=== PATIENT | male | born 1965 | race African-American/Black ===

== ENCOUNTER 2017-05-03 12:36 | Emergency (ER) | payer OTHER ==
[2017-05-03 14:33] LABS: ABSOLUTE EOSINOPHILS # (AUTO) 0.1 10^3/uL (0.0-0.6); ABSOLUTE LYMPHOCYTES (AUTO) 1.7 10^3/uL (0.5-4.7); ABSOLUTE MONOCYTES (AUTO) 0.5 10^3/uL (0.1-1.4); ABSOLUTE NEUT (AUTO) 2.4 10^3/uL (1.7-8.2); BASOPHILS % (AUTO) 0.5 % (0-2); EOSINOPHILS % (AUTO) 1.4 % (0-6); HEMATOCRIT 45.9 % (37.9-51.0); HGB HCT DIFFERENCE -0.9; LYMPHOCYTES % (AUTO) 36.7 % (13-45); MEAN CORPUSCULAR HEMOGLOBIN 30.4 pg (27.0-33.4); MEAN CORPUSCULAR HGB CONC 32.6 g/dL (32.0-36.0); MEAN CORPUSCULAR VOLUME 93 fl (80-97); MONOCYTES % (AUTO) 10.6 % (3-13); RED BLOOD COUNT 4.93 10^6/uL (4.35-5.55); RED CELL DISTRIBUTION WIDTH 13.6 % (11.5-14.0); SEGMENTED NEUTROPHILS % (AUTO) 50.8 % (42-78); WHITE BLOOD COUNT 4.7 10^3/uL (4.0-10.5)
[2017-05-03 14:56] LABS: ALANINE AMINOTRANSFERASE 46 U/L (21-72); ALBUMIN 4.2 g/dL (3.5-5.0); ALKALINE PHOSPHATASE 69 U/L (38-126); ANION GAP 7 (5-19); ASPARTATE AMINO TRANSFERASE 36 U/L (17-59); BILIRUBIN,DIRECT 0.3 mg/dL (0.0-0.4); BILIRUBIN,TOTAL 0.6 mg/dL (0.2-1.3); BLOOD UREA NITROGEN 12 mg/dL (7-20); CALCIUM 9.4 mg/dL (8.4-10.2); CARBON DIOXIDE 31 mmol/L (22-30); CHLORIDE 101 mmol/L (98-107); CREATININE RESULT 1.07 mg/dL (0.52-1.25); GLUCOSE 86 mg/dL (75-110); POTASSIUM 4.6 mmol/L (3.6-5.0); SODIUM 138.8 mmol/L (137-145); TOTAL PROTEIN 7.1 g/dL (6.3-8.2)
--- NOTE | 2017-05-03 15:04 | ER Document Report ---
ED Cardiac - General Mode of Arrival: Ambulatory Information source: Patient TRAVEL OUTSIDE OF THE [place] IN LAST 30 DAYS: No - HPI Patient complains to provider of: Chest pain <ANDRE MELENDEZ - Last Filed: 05/03/17 16:28> <LELE RODRIGUEZ - Last Filed: 05/03/17 21:45> - General Chief Complaint: Chest Pain Stated Complaint: CHEST PAIN Time Seen by Provider: 05/03/17 13:56 Notes: Patient is a 51-year-old male who presents to the emergency department today with complaints of chest pain and difficulty taking deep breaths. 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 Patient had a stress test 1 year ago which was unremarkable. Patient has a history of MS. Patient states he has felt slightly short of breath but denies any nausea, cough, or fevers. (ANDRE MELENDEZ) - Related Data Allergies/Adverse Reactions: No Known Allergies Allergy (Verified 05/03/17 12:47) Past Medical History - General Information source: Patient - Social History Smoking Status: Never Smoker Cigarette use (# per day): No Frequency of alcohol use: None Drug Abuse: None Lives with: Family Family History: Reviewed & Not Pertinent - Past Medical History Cardiac Medical History: Reports: Hx Hypertension Musculoskeltal Medical History: Reports Hx Multiple Sclerosis Past Surgical History: Reports: Hx Cardiac Catheterization - no stents placed - Immunizations Hx Diphtheria, Pertussis, Tetanus Vaccination: Yes Hx Pneumococcal Vaccination: 06/05/12 <ANDRE MELENDEZ - Last Filed: 05/03/17 16:28> Review of Systems - Review of Systems Constitutional: denies: Fever EENT: No symptoms reported Cardiovascular: See HPI, Chest pain Respiratory: See HPI, Short of breath, Other - difficulty taking deep breaths. denies: Cough Gastrointestinal: denies: Nausea Genitourinary: No symptoms reported Male Genitourinary: No symptoms reported Musculoskeletal: No symptoms reported Skin: No symptoms reported Hematologic/Lymphatic: No symptoms reported Neurological/Psychological: No symptoms reported -: Yes All other systems reviewed and negative <ANDRE MELENDEZ - Last Filed: 05/03/17 16:28> - Vital signs Vitals: Temp Pulse Resp BP Pulse Ox 98.0 F 53 L 17 151/102 H 97 05/03/17 12:45 05/03/17 12:45 05/03/17 12:45 05/03/17 12:45 05/03/17 12:45 Course - Laboratory Result Diagrams: 05/03/17 14:16 05/03/17 14:16 <ANDRE MELENDEZ - Last Filed: 05/03/17 16:28> - Laboratory Result Diagrams: 05/03/17 14:16 05/03/17 14:16 - Diagnostic Test Radiology reviewed: Reports reviewed - EKG Interpretation by Me EKG shows normal: Sinus rhythm Rate: Normal Rhythm: NSR <LELE RODRIGUEZ - Last Filed: 05/03/17 21:45> - Re-evaluation Re-evalutation: 05/03/17 Patient is a 51-year-old male who comes in complaining of chest pain. Patient has reproducible chest wall pain. Patient had a stress test last year with no acute findings. Troponin negative 2. No acute findings on EKG, blood work, her chest x-ray. Patient will be discharged home and is to follow-up with cardiology as needed and his primary doctor this week. Understands and agrees with plan. Stable for discharge. Return if any worsening or concerning symptoms. (LELE RODRIGUEZ) - Vital Signs Vital signs: Temp Pulse Resp BP Pulse Ox 98.0 F 53 L 17 153/90 H 97 05/03/17 12:45 05/03/17 12:45 05/03/17 19:01 05/03/17 19:01 05/03/17 19:01 - Laboratory Laboratory results interpreted by me: 05/03/17 05/03/17 14:16 14:16 Plt Count 137 L Carbon Dioxide 31 H Discharge <ANDRE MELENDEZ - Last Filed: 05/03/17 16:28> <LELE RODRIGUEZ - Last Filed: 05/03/17 21:45> - Discharge Clinical Impression: Chest pain Qualifiers: Chest pain type: unspecified Qualified Code(s): R07.9 - Chest pain, unspecified Condition: Stable Disposition: HOME, SELF-CARE Instructions: Chest Pain of Unclear Cause ([facility]) Forms: Return to Work Referrals: LYLE KABA MD [ACTIVE STAFF] - Follow up in 3-5 days Scribe Attestation: 05/03/17 21:45 I personally performed the services described in the documentation, reviewed and edited the documentation which was dictated to the scribe in my presence, and it accurately records my words and actions. (LELE RODRIGUEZ) Scribe Documentation - Scribe Written by Scribe:: Darcy Larose, 05/03/2017 1634 acting as scribe for :: [place] <ANDRE MELENDEZ - Last Filed: 05/03/17 16:28>
--- NOTE | 2017-05-03 15:25 | RADIOLOGY REPORT (SQ) ---
EXAM DESCRIPTION: CHEST PA/LAT COMPLETED DATE/TIME: 05/03/2017 3:10 pm REASON FOR STUDY: cp COMPARISON: 10/16/2015 EXAM PARAMETERS: NUMBER OF VIEWS: two views TECHNIQUE: Digital Frontal and Lateral radiographic views of the chest acquired. RADIATION DOSE: NA LIMITATIONS: none FINDINGS: LUNGS AND PLEURA: No opacities, masses or pneumothorax. No pleural effusion. MEDIASTINUM AND HILAR STRUCTURES: No masses or contour abnormalities. HEART AND VASCULAR STRUCTURES: Heart normal size. No evidence for failure. BONES: No acute findings. HARDWARE: None in the chest. OTHER: No other significant finding. IMPRESSION: NO SIGNIFICANT RADIOGRAPHIC FINDING IN THE CHEST. TECHNICAL DOCUMENTATION: JOB ID: [id number] [employer]- All Rights Reserved
[2017-05-03 19:49] VITALS: BP 153/90
--- NOTE | 2017-05-03 20:02 | EKG REPORT ---
SEVERITY:- BORDERLINE ECG - SINUS BRADYCARDIA PROBABLE LEFT ATRIAL ABNORMALITY BORDERLINE T WAVE ABNORMALITIES : Confirmed by: Mindy Matute 03-May-2017 20:02:05
== END 2017-05-03 19:20 | disposition home or self-care (01) ==
LOC: ER 12:36
DX: R07.9 Chest pain, unspecified (principal); R06.00 Dyspnea, unspecified; R06.02 Shortness of breath; I10 Essential (primary) hypertension
CPT/HCPCS: 36415; 71020; 80053; 84484; 85025; 93005; 93010; 99285

== ENCOUNTER 2018-03-18 06:53 | Emergency (ER) | payer SELFPAY ==
[2018-03-18 07:01] VITALS: BP 143/82
--- NOTE | 2018-03-18 07:47 | ER Document Report ---
ED General - General Chief Complaint: Numbness of Arm Stated Complaint: NECK PAIN,ARM NUMBNESS Time Seen by Provider: 03/18/18 07:24 TRAVEL OUTSIDE OF THE [place] IN LAST 30 DAYS: No - HPI Notes: Patient is a 52-year-old male with a history of MS and infusions every 6 months who presents to the ED complaining of neck pain and decreased sensation down his right arm 1 week. Patient states that his symptoms have been constant and have not changed in intensity. Patient is not sure of anything that worsens his symptoms or improves them aside from some increased neck pain with pressure in that area and moving his head around at times. He denies any drug allergies. His last infusion was about 5 months ago. Patient states he has not had these symptoms before. Denies any IV drug use. No recent illness. Denies any headache, fever, head injury, changes in vision/speech/mentation/ hearing, URI, sore throat, chest pain, palpitations, syncope, cough, shortness of breath, wheeze, dyspnea, abdominal pain, nausea/vomiting/diarrhea, urinary retention, dysuria, hematuria, loss of control of bowel or bladder, saddle anesthesia, muscle paralysis/weakness, or rash. - Related Data Allergies/Adverse Reactions: No Known Allergies Allergy (Verified 05/03/17 12:47) Past Medical History - Social History Smoking Status: Never Smoker Family History: Reviewed & Not Pertinent - Past Medical History Cardiac Medical History: Reports: Hx Hypertension Pulmonary Medical History: Denies: Hx Tuberculosis Renal/ Medical History: Denies: Hx Peritoneal Dialysis Musculoskeletal Medical History: Reports Hx Multiple Sclerosis Psychiatric Medical History: Denies: Hx Depression Past Surgical History: Reports: Hx Cardiac Catheterization - no stents placed. Denies: Hx Pacemaker - Immunizations Hx Diphtheria, Pertussis, Tetanus Vaccination: Yes Hx Pneumococcal Vaccination: 06/05/12 Review of Systems - Review of Systems -: Yes All other systems reviewed and negative Physical Exam - Vital signs Vitals: Temp Pulse Resp BP Pulse Ox 98.1 F 61 16 143/82 H 98 03/18/18 06:59 03/18/18 06:59 03/18/18 06:59 03/18/18 06:59 03/18/18 06:59 - Notes Notes: PHYSICAL EXAMINATION: GENERAL: Well-appearing, well-nourished and in no acute distress. A&Ox4. Answers questions appropriately. HEAD: Atraumatic, normocephalic. Non-tender. EYES: Pupils equal round and reactive to light, extraocular movements intact, sclera anicteric, conjunctiva are normal. No nystagmus. ENT: Nares patent and without discharge. oropharynx clear without exudates. No tonsilar hypertrophy or erythema. Moist mucous membranes. NECK: Normal range of motion, supple without lymphadenopathy. No rigidity. kernig/brudzinski neg. + mild tenderness to midline and paraspinal. Spurling mildly positive. LUNGS: Breath sounds clear to auscultation bilaterally and equal. No wheezes rales or rhonchi. HEART: Regular rate and rhythm without murmurs, rubs, gallops. Musculoskeletal: Ext b/l: FROM to passive/active. Strength 5+/5. No bony tenderness of extremities. Back: FROM to passive/active. Strength 5+/5. No vertebral point tenderness, stepoffs, or deformities. No other bony tenderness or ecchymosis. SLR negative b/l. Extremities: No cyanosis, clubbing, or edema b/l. Peripheral pulses 2+. Capillary refill less than 2 seconds. NEUROLOGICAL: NIH 0. Cranial nerves grossly intact. Normal speech, normal gait. Decreased sensation to the posterior arm/hand on the right side vs left, motor exams. Reflexes 2+ b/l. BOAZ's negative. PSYCH: Normal mood, normal affect. SKIN: Warm, Dry, normal turgor, no rashes or lesions noted. Course - Re-evaluation Re-evalutation: 03/18/18 08:48 Patient is an afebrile, well-hydrated, 52-year-old male who presents to the ED with cervicalgia with radiculitis to the right upper extremity. Vitals are acceptable without any significant tachycardia, tachypnea, or hypoxia. PE is otherwise unremarkable for any focal neurological deficits aside from a mild decrease in sensation to the right upper extremity in the C5-6 dermatome. I did review this case with Dr. Elam about work up and treatment. Reviewed with patient that we can obtain a CT spine to further evaluate for disc bulging , but an MRI would be recommended. Advised patient that we would not be able to do an emergent MRI for his condition at this time, and that the CT would expose him to radiation. I recommended that he follow-up with his PCM for further evaluation and management and/or orthopedics. Patient stated that he would like a CT to be performed and understands that he is exposing soft radiation. CT scan was obtained and was negative for any acute pathology aside from degenerative changes primarily near the C5-6 nerve root. Solu-Medrol given IM today. No other labs or imaging warranted at this time based on H&P. Low suspicion for any meningitis, fracture, expanding/ruptured AAA, cauda equina syndrome, epidural mass lesion/abscess, herniated disc causing severe spinal stenosis, or other systemic infection at this time. Patient is aware that his condition can change from initial presentation and that he needs monitor symptoms closely for any acute changes. I will send him home with a prescription for a steroid taper. Conservative measures otherwise for symptoms. Recheck with your PCM in 2-3 days. Consider consult with orthopedic/ physical therapy. Return to the ED with any worsening/concerning symptoms otherwise as reviewed in discharge. Patient is in agreement. - Vital Signs Vital signs: Temp Pulse Resp BP Pulse Ox 98.1 F 61 16 143/82 H 98 03/18/18 06:59 03/18/18 06:59 03/18/18 06:59 03/18/18 06:59 03/18/18 06:59 Discharge - Discharge Clinical Impression: Cervicalgia, Radiculitis Condition: Stable Disposition: HOME, SELF-CARE Additional Instructions: Rest, Ice Tylenol/ibuprofen as needed Light stretches daily Strength exercises as able Moist heat and massage may help F/u with your PCP in 2-3 days for a recheck Consider consult(s) with Orthopedics/physical therapy for ongoing/worsening symptoms Return to the ED with any worsening symptoms and/or development of fever, headache, chest pain, palpitations, syncope, shortness of breath, trouble breathing, abdominal pain, n/v/d, blood in stool/urine, loss of control of bowel /bladder, urinary retention, muscle weakness/paralysis, saddle anesthesia, numbness/tingling, or other worsening symptoms that are concerning to you. Prescriptions: Prednisone 20 mg PO ASDIR #18 tablet Forms: Elevated Blood Pressure Referrals: [facility] [Provider Group] - Follow up as needed GLYNN GROVE MD [COMMUNITY BASED STAFF] - 03/21/18
[2018-03-18] MEDS ORDERED: METHYLPREDNISOLONE INJ 125 MG/2 ML SDV IM ONE ×2 (07:57→08:05)
[2018-03-18] MEDS ORDERED: METHYLPREDNISOLONE INJ 125 MG/2 ML SDV IV ONE (08:01)
--- NOTE | 2018-03-18 08:42 | RADIOLOGY REPORT (SQ) ---
EXAM DESCRIPTION: CT CERVICAL SPINE WITHOUT COMPLETED DATE/TIME: 03/18/2018 8:25 am REASON FOR STUDY: neck pain, neuritis RUE COMPARISON: None. TECHNIQUE: Axial images acquired through the cervical spine without intravenous contrast. Images re viewed with lung, soft tissue and bone windows. Reconstructed coronal and sagittal MPR images review ed. Images stored on PACS. All CT scanners at this facility use dose modulation, iterative reconstruction, and/or weight based d osing when appropriate to reduce radiation dose to as low as reasonably achievable (ALARA). [facility]: Dose Right [facility]: CareDose [facility]: Dose Right [facility]: Teradose 4D [facility]: Smart Flipter RADIATION DOSE: CT Rad equipment meets quality standard of care and radiation dose reduction techniq ues were employed. CTDIvol: 20.6 mGy. DLP: 508 mGy-cm. mGy. LIMITATIONS: None. FINDINGS: ALIGNMENT: Anatomic. MINERALIZATION: Normal. VERTEBRAL BODIES: No fractures or dislocation. DISCS: Disc space narrowing at multiple levels. Small related osteophytes with uncovertebral spurrin g. Findings look most pronounced at C5-6. Noncritical degrees of multilevel central and foraminal e ncroachment. FACETS, LATERAL MASSES, POSTERIOR ELEMENTS: No fractures. No dislocation. No acute findings. HARDWARE: None in the spine. VISUALIZED RIBS: No fractures. LUNG APICES AND SOFT TISSUES: No significant or acute findings. OTHER: No other significant finding. IMPRESSION: 1. Cervical spondylosis. No evidence of fracture or malalignment. TECHNICAL DOCUMENTATION: JOB ID: [id number] Quality ID # [id number]: Final reports with documentation of one or more dose reduction techniques (e.g., Au tomated exposure control, adjustment of the mA and/or kV according to patient size, use of iterative reconstruction technique) 2010 [employer]- All Rights Reserved Reading location - IP/workstation name: [email or web address]
== END 2018-03-18 09:02 | disposition home or self-care (01) ==
LOC: ER 06:53
DX: M54.12 Radiculopathy, cervical region (principal); M47.9 Spondylosis, unspecified; M54.2 Cervicalgia; G35 Multiple sclerosis; R20.8 Other disturbances of skin sensation; I10 Essential (primary) hypertension
CPT/HCPCS: 99284; 96372; 72125; J2930